=== PATIENT | male | born 1945 | race Caucasian/White ===

== ENCOUNTER 2018-05-23 17:15 | Observation (INO) ==
[2018-05-23 17:58] LABS: Basophils % 0.3 %; Eosinophils # 0.1 K/mcL (0.0-0.6); Eosinophils % 2.4 %; Hematocrit 41.5 % (37.5-50.1); Hemoglobin 14.2 g/dL (12.9-16.9); Immature Granulocytes % 0.5 % (0-4); Lymphocytes % 16.4 %; Mean Corpuscular HGB Conc 34.2 g/dL (31.6-35.5); Mean Corpuscular Hemoglobin 30.5 pg (28.0-33.3); Mean Corpuscular Volume 89.1 fL (83.0-100.0); Mean Platelet Volume 9.9 fL (9.4-12.4); Monocytes # 0.9 K/mcL (0.0-1.3); Monocytes % 16.3 %; Neutrophils # 3.7 K/mcL (1.6-8.9); Platelet Count 260 K/mcL (140-400); Red Blood Count 4.66 M/mcL (4.19-5.50); Red Cell Distribution Width 12.9 % (11.5-14.5); Segmented Neutrophils % 64.1 %
--- NOTE | 2018-05-23 18:02 | Emergency Department Note ---
Disposition Clinical Impression: NSTEMI (non-ST elevated myocardial infarction) Pneumonia Qualifiers: Pneumonia type: due to unspecified organism Laterality: right Lung location: upper lobe of lung Qualified Code(s): J18.1 - Lobar pneumonia, unspecified organism Disposition: Admitted As Inpatient Condition: Good Referrals: Angus Denis DO [Primary Care Provider] - Time of Disposition: 19:48 General Adult HPI - General Chief complaint: ED Shortness of Breath/Dyspnea Stated complaint: cough, congestion, fever Time Seen by Provider: 05/23/18 17:18 Source: patient Limitations: no limitations Nursing Notes Reviewed: Yes Vital Signs Reviewed: Yes - History of Present Illness HPI Narrative: A 72-year-old male with a one-week history of sinus infection. He was seen in urgent care 4 days ago and prescribed amoxicillin. He has not felt any better with the amoxicillin. He has been taking the amoxicillin as prescribed and Aleve for fever and headaches. He had a fever of 102.4 this morning. He also notes that he has had blurry vision and has not had a bowel movement in the past 3 days when he normally has bowel movements daily. Pain Scale: 8 - Related Data Home Medications Medication Instructions Recorded Confirmed Amoxicillin [Amoxicillin] 875 mg PO BID 05/23/18 05/23/18 Zolpidem [Ambien] 10 mg PO HS 05/23/18 05/23/18 Allergies Allergy/AdvReac Type Severity Reaction Status Date / Time No Known Allergies Allergy Verified 05/23/18 19:35 Constitutional: Reports: fever, weakness Eyes: Reports: vision change (blurry vision) ENT ED: Reports: throat pain, dental pain, congestion. Denies: ear pain Cardiovascular: Denies: chest pain Respiratory: Reports: cough, sputum production Gastrointestinal: Reports: constipation Genitourinary: Denies: dysuria Neurological: Reports: headache, weakness Past Medical History - Past Medical History Medical history: Reports: other Surgical history: Reports: non-contributory - Social History Smoking Status: Never smoker Smokeless Tobacco Status: No Alcohol use: Reports: none Drug use: Reports: none Physical Exam - General Limitations: no limitations General appearance: alert, in no apparent distress, other (diaphoretic) - Head Head exam: atraumatic, normocephalic, normal inspection - Eye Eye exam: Present: normal appearance, PERRL, EOMI - ENT ENT exam: normal oropharynx, mucous membranes moist, TM's normal bilaterally, normal external ear exam - Expanded ENT Exam Nose exam: other (boggy turbinates with thick white mucus) - Neck Neck exam: Present: normal inspection. Absent: lymphadenopathy - Chest Chest inspection: Present: normal inspection, symmetric chest wall rise - Respiratory Respiratory exam: Present: normal lung sounds bilaterally - Cardiovascular Cardiovascular exam: Present: regular rate, normal rhythm, normal heart sounds - Abdominal Exam Abdominal exam: Present: soft, tenderness (mild), normal bowel sounds Abdominal tenderness: Present: RLQ, LLQ - Neurological Exam Neurological exam: Present: alert, oriented X3 - Psychiatric Psychiatric exam: Present: normal affect, normal mood - Skin Skin exam: Present: intact, normal color, diaphoresis Course Vital Signs Temperature 98 F 05/23/18 17:17 Pulse Rate 81 05/23/18 17:17 Respiratory Rate 18 05/23/18 17:17 Blood Pressure 192/111 05/23/18 17:17 O2 Sat by Pulse Oximetry 96 05/23/18 17:17 Temperature 98 F 05/23/18 17:33 Pulse Rate 57 05/23/18 19:14 Respiratory Rate 16 05/23/18 19:14 Blood Pressure 116/72 05/23/18 19:14 O2 Sat by Pulse Oximetry 97 05/23/18 19:29 Oxygen Delivery Oxygen Delivery Room Air Medical Decision Making - [facility] Narrative Medical decision making narrative: 72 yo male with 7 day history sinus infection symptoms. Temperature 102.4 this AM currently taking amoxicillin and aleve. Also complaining of constipation x3 days and blurred vision. Head CT negative. KUB showed constipation. Chest CT showed pneumonia. Labs showed critical troponin of 0.15. Will admit for pneumonia and possible concurrent NSTEMI. - Lab Data Result diagrams: 05/23/18 17:49 05/23/18 17:50 Lab Results 05/23/18 05/23/18 05/23/18 Range/Units 17:49 17:49 17:50 WBC 5.8 (4.3-11.1) K/mcL RBC 4.66 (4.19-5.50) M/mcL Hgb 14.2 (12.9-16.9) g/dL Hct 41.5 (37.5-50.1) % MCV 89.1 (83.0-100.0) fL MCH 30.5 (28.0-33.3) pg MCHC 34.2 (31.6-35.5) g/dL RDW 12.9 (11.5-14.5) % Plt Count 260 (140-400) K/mcL MPV 9.9 (9.4-12.4) fL Immature Gran % 0.5 (0-4) % Seg Neutrophils % 64.1 % Lymphocytes % 16.4 % Monocytes % 16.3 % Eosinophils % 2.4 % Basophils % 0.3 % Neutrophils # 3.7 (1.6-8.9) K/mcL Lymphocytes # 1.0 (0.6-4.6) K/mcL Monocytes # 0.9 (0.0-1.3) K/mcL Eosinophils # 0.1 (0.0-0.6) K/mcL Basophils # 0.0 (0.0-0.2) K/mcL Sodium 138 (136-145) mEq/L Potassium 3.9 (3.5-5.1) mEq/L Chloride 103 (98-107) mEq/L Carbon Dioxide 27 (23-29) mEq/L BUN 18 (8-23) mg/dL Creatinine 1.04 (0.70-1.30) mg/dL Est GFR ( Amer) > 60 (> 60) Est GFR (Non-Af Amer) > 60 (> 60) BUN/Creatinine Ratio 17 (6-26) Glucose 102 (70-105) mg/dL Calculated Osmolality 288 (280-300) Lactic Acid 1.5 (0.5-2.2) mmol/L Calcium 9.2 (8.6-10.3) mg/dL Total Bilirubin 0.4 (0.3-1.0) mg/dL AST 49 H (13-39) Units/L ALT 36 (7-52) Units/L Alkaline Phosphatase 69 (34-104) Units/L Troponin I 0.15 H* (< 0.04) ng/mL Serum Total Protein 7.8 (6.4-8.9) g/dL Albumin 3.6 (3.5-5.7) g/dL Globulin 4.2 H (2.4-3.5) g/dL Albumin/Globulin Ratio 0.9 L (1.1-2.2) - EKG Data EKG #1 EKG attestation: Yes I reviewed and interpreted this EKG. EKG shows normal: sinus rhythm (with frequent ventricular premature complexes) Rate: normal Rhythm: PVC's Comstock/QRS: LBBB, wide QRS complex Ectopy: PVC
[2018-05-23 18:21] LABS: Alanine Aminotransferase 36 Units/L (7-52); Albumin 3.6 g/dL (3.5-5.7); Albumin/Globulin Ratio 0.9 (1.1-2.2); Alkaline Phosphatase 69 Units/L (34-104); Aspartate Amino Transferase 49 Units/L (13-39); BUN/Creatinine Ratio 17 (6-26); Bilirubin,Total 0.4 mg/dL (0.3-1.0); Blood Urea Nitrogen 18 mg/dL (8-23); Calcium 9.2 mg/dL (8.6-10.3); Carbon Dioxide 27 mEq/L (23-29); Chloride 103 mEq/L (98-107); Globulin 4.2 g/dL (2.4-3.5); Glucose 102 mg/dL (70-105); Osmolality,Calculated 288 (280-300); Potassium 3.9 mEq/L (3.5-5.1); Sodium 138 mEq/L (136-145); Total Protein 7.8 g/dL (6.4-8.9); eGFR For Non-African Americans > 60 (> 60)
[2018-05-23 18:32] LABS: Troponin I 0.15 ng/mL (< 0.04)
[2018-05-23] MEDS ORDERED: Aspirin 81 MG TAB.CHEW PO ONE (19:19)
[2018-05-23] MEDS ORDERED: *HR* Heparin 5,000 UNIT/ML VIAL IVP PRN ×2 (19:19)
[2018-05-23] MEDS ORDERED: *HR* Heparin 5,000 UNIT/ML VIAL IVP ONE (19:19)
--- NOTE | 2018-05-23 19:20 | Emergency Department Note ---
Disposition Clinical Impression: NSTEMI (non-ST elevated myocardial infarction) Pneumonia Qualifiers: Pneumonia type: due to unspecified organism Laterality: unspecified laterality Lung location: unspecified part of lung Qualified Code(s): J18.9 - Pneumonia, unspecified organism Disposition: Admitted As Inpatient Condition: Good General Adult HPI - General Chief complaint: ED Shortness of Breath/Dyspnea Stated complaint: cough, congestion, fever Time Seen by Provider: 05/23/18 17:18 Source: patient Limitations: no limitations - History of Present Illness Pain Scale: 8 - Related Data Home Medications Medication Instructions Recorded Confirmed Zolpidem [Ambien] 10 mg PO HS 05/23/18 05/23/18 Previous Rx's Medication Instructions Recorded Aspirin Enteric Coated [Aspirin EC] 81 mg PO DAILY #30 tablet. 05/26/18 Atorvastatin [Lipitor] 40 mg PO HS #30 tablet 05/26/18 Cefdinir [Omnicef] 300 mg PO BID #12 capsule 05/26/18 Clopidogrel [Plavix] 75 mg PO DAILY #30 tablet 05/26/18 Lisinopril [Zestril] 5 mg PO DAILY #30 tablet 05/26/18 Allergies Allergy/AdvReac Type Severity Reaction Status Date / Time No Known Allergies Allergy Verified 05/23/18 19:35 Constitutional: Reports: fever, weakness Eyes: Reports: vision change (blurry vision) ENT ED: Reports: throat pain, dental pain, congestion. Denies: ear pain Cardiovascular: Denies: chest pain Respiratory: Reports: cough, sputum production Gastrointestinal: Reports: constipation Genitourinary: Denies: dysuria Neurological: Reports: headache, weakness Past Medical History - Past Medical History Medical history: Reports: other Surgical history: Reports: non-contributory - Social History Smoking Status: Never smoker Smokeless Tobacco Status: No Alcohol use: Reports: none Drug use: Reports: none Physical Exam - General Limitations: no limitations General appearance: alert, in no apparent distress, other (diaphoretic) Course Vital Signs Temperature 98 F 05/23/18 17:17 Pulse Rate 81 05/23/18 17:17 Respiratory Rate 18 05/23/18 17:17 Blood Pressure 192/111 05/23/18 17:17 O2 Sat by Pulse Oximetry 96 05/23/18 17:17 Temperature 98.3 F 05/26/18 15:23 Pulse Rate 63 05/26/18 15:23 Respiratory Rate 18 05/26/18 15:23 Blood Pressure 151/89 05/26/18 15:23 O2 Sat by Pulse Oximetry 96 05/26/18 07:32 Oxygen Delivery Oxygen Delivery Room Air Medical Decision Making - Lab Data Result diagrams: 05/26/18 05:54 05/26/18 05:54 Lab Results 05/23/18 05/23/18 05/23/18 Range/Units 17:49 17:49 17:50 WBC 5.8 (4.3-11.1) K/mcL RBC 4.66 (4.19-5.50) M/mcL Hgb 14.2 (12.9-16.9) g/dL Hct 41.5 (37.5-50.1) % MCV 89.1 (83.0-100.0) fL MCH 30.5 (28.0-33.3) pg MCHC 34.2 (31.6-35.5) g/dL RDW 12.9 (11.5-14.5) % Plt Count 260 (140-400) K/mcL MPV 9.9 (9.4-12.4) fL Immature Gran % 0.5 (0-4) % Seg Neutrophils % 64.1 % Lymphocytes % 16.4 % Monocytes % 16.3 % Eosinophils % 2.4 % Basophils % 0.3 % Neutrophils # 3.7 (1.6-8.9) K/mcL Lymphocytes # 1.0 (0.6-4.6) K/mcL Monocytes # 0.9 (0.0-1.3) K/mcL Eosinophils # 0.1 (0.0-0.6) K/mcL Basophils # 0.0 (0.0-0.2) K/mcL PT (9.4-12.1) Seconds INR APTT (26.0-36.0) Seconds Sodium 138 (136-145) mEq/L Potassium 3.9 (3.5-5.1) mEq/L Chloride 103 (98-107) mEq/L Carbon Dioxide 27 (23-29) mEq/L BUN 18 (8-23) mg/dL Creatinine 1.04 (0.70-1.30) mg/dL Est GFR ( Amer) > 60 (> 60) Est GFR (Non-Af Amer) > 60 (> 60) BUN/Creatinine Ratio 17 (6-26) Glucose 102 (70-105) mg/dL Calculated Osmolality 288 (280-300) Lactic Acid 1.5 (0.5-2.2) mmol/L Calcium 9.2 (8.6-10.3) mg/dL Total Bilirubin 0.4 (0.3-1.0) mg/dL AST 49 H (13-39) Units/L ALT 36 (7-52) Units/L Alkaline Phosphatase 69 (34-104) Units/L Troponin I 0.15 H* (< 0.04) ng/mL Serum Total Protein 7.8 (6.4-8.9) g/dL Albumin 3.6 (3.5-5.7) g/dL Globulin 4.2 H (2.4-3.5) g/dL Albumin/Globulin Ratio 0.9 L (1.1-2.2) 05/23/18 Range/Units 19:41 WBC (4.3-11.1) K/mcL RBC (4.19-5.50) M/mcL Hgb (12.9-16.9) g/dL Hct (37.5-50.1) % MCV (83.0-100.0) fL MCH (28.0-33.3) pg MCHC (31.6-35.5) g/dL RDW (11.5-14.5) % Plt Count (140-400) K/mcL MPV (9.4-12.4) fL Immature Gran % (0-4) % Seg Neutrophils % % Lymphocytes % % Monocytes % % Eosinophils % % Basophils % % Neutrophils # (1.6-8.9) K/mcL Lymphocytes # (0.6-4.6) K/mcL Monocytes # (0.0-1.3) K/mcL Eosinophils # (0.0-0.6) K/mcL Basophils # (0.0-0.2) K/mcL PT 13.9 H (9.4-12.1) Seconds INR 1.2 APTT 33.1 (26.0-36.0) Seconds Sodium (136-145) mEq/L Potassium (3.5-5.1) mEq/L Chloride (98-107) mEq/L Carbon Dioxide (23-29) mEq/L BUN (8-23) mg/dL Creatinine (0.70-1.30) mg/dL Est GFR ( Amer) (> 60) Est GFR (Non-Af Amer) (> 60) BUN/Creatinine Ratio (6-26) Glucose (70-105) mg/dL Calculated Osmolality (280-300) Lactic Acid (0.5-2.2) mmol/L Calcium (8.6-10.3) mg/dL Total Bilirubin (0.3-1.0) mg/dL AST (13-39) Units/L ALT (7-52) Units/L Alkaline Phosphatase (34-104) Units/L Troponin I (< 0.04) ng/mL Serum Total Protein (6.4-8.9) g/dL Albumin (3.5-5.7) g/dL Globulin (2.4-3.5) g/dL Albumin/Globulin Ratio (1.1-2.2) Attestation Statement - Attestation Attestation: I examined this patient and my medical decision-making was reviewed with the Resident Physician. I agree with the documented findings, disposition and treatment plan as described except to the extent set forth below. Findings consistent with pneumonia which is possibly atypical. We will start coverage for community acquired pneumonia with azithromycin for atypical coverage. At cultures will be sent. Additionally given the elevated troponin the setting of normal creatinine and we will start heparin while concurrently troponins are trended. If cardiac biomarkers do not trended upwards this could possibly be contributed to demand ischemia. Aspirin will additionally be administered. I spent greater than 35 minutes of critical care time resuscitating this acutely ill patient suffering from an STEMI as well as pneumonia this was excluding billable procedures.
[2018-05-23] MEDS ORDERED: Heparin 25,000 UNIT/500 ML D5W 25,000 UNIT/500 ML BAG IVC SCH (19:30)
[2018-05-23 19:58] LABS: INR 1.2; Prothrombin Time 13.9 Seconds (9.4-12.1)
[2018-05-23] MEDS ORDERED: Azithromycin 500 MG in D5% in Water 250 ML IVPB ONE (20:00)
[2018-05-23] MEDS ORDERED: cefTRIAXone 2,000 MG in Water for inj. (sterile) 20 ML 20 ML IVP ONE (20:00)
[2018-05-23 20:01] LABS: Activated Partial Thrombo Time 33.1 Seconds (26.0-36.0)
[2018-05-23] MEDS ORDERED: Naloxone 0.4 MG/ML INJ IVP PRN (20:04)
--- NOTE | 2018-05-23 22:08 | Internal Med History&Physical ---
Date of Encounter: 05/24/18 Time of Encounter: 22:00 Internal Medicine - H&P: HPI Chief complaint: Coughing, fevers, malaise for about 10 days History of present illness: Mr. Felix is a 72 year old male with pmh of sinusitis presenting with complaints of feeling unwell for the past 10 days. Patient notes he has been dizzy, coughing and having upper respiratory synptoms which he thought was secondary to his sinusitis and he went to urgent care on monday and was prescribed amoxicillin which he has been taking with no relief. He noted he woke up with a headache this morning and had a fever of 102.4 and that's why he came to the E. In the ER, chest CT was done showing extensive airspace densities in the right lung suggestive of multifocal pneumonia. He is being admitted for further management Past Med Surg Social Fam HX - Past Medical History Medical history: other Additional medical history: Heart murmur r/t rheumatic fever - Past Surgical History Surgical History: non-contributory Additional surgical history: back surgery - Social History Smoking Status: Never smoker Smokeless Tobacco Status: No Alcohol use: none Drug use: none Internal Medicine - H&P: Meds Amoxicillin [Amoxicillin] 875 mg PO BID 05/23/18 [History] Zolpidem [Ambien] 10 mg PO HS 05/23/18 [History] 3 Allergy/AdvReac Type Severity Reaction Status Date / Time No Known Allergies Allergy Verified 05/23/18 19:35 All Systems PM: A 10-system review of systems was performed and is negative for pertinent findings except as documented above in the HPI. - Constitutional Constitutional: fever(s), no chills, no night sweats - EENT Eyes: no change in vision, no discharge, no pain, no photophobia Ears: no ear discharge, no ear pain, no tinnitus Nose, mouth and throat: no dysphagia, no nasal discharge, no neck pain, no sore throat - Cardiovascular Cardiovascular ROS IM: lightheadedness, no chest pain, no diaphoresis, no dyspnea, no palpitations, no syncope - Respiratory Respiratory: cough, dyspnea, no wheezing, no excessive phlegm production - Gastrointestinal Gastrointestinal: no abdominal pain, no diarrhea, no hematemesis, no hematochezia, no melena, no nausea, no vomiting - Musculoskeletal Musculoskeletal ROS IM: no numbness, no tingling - Integumentary Integumentary IM: no rash, no unusual bruising - Neurological Neurological ROS: no confusion, no convulsions, no focal weakness, no numbness, no tingling, no tremor(s) - Hematologic/Lymphatic Hematologic/Lymphatic: no easy bruising - Constitutional Vitals: Temp Pulse Resp BP Pulse Ox 98.5 F 58 16 139/87 97 05/23/18 21:53 05/23/18 21:53 05/23/18 21:53 05/23/18 21:53 05/23/18 21:53 - Head Head exam: Present: atraumatic, normocephalic - Eye Eye exam: Present: PERRL, conjuntiva pink, sclera anicteric Pupils: Present: PERRL - Neck Neck exam general surgery: Present: supple, trachea midline. Absent: lymphadenopathy - Respiratory Respiratory exam: Present: CTAB. Absent: accessory muscle use, rales, rhonchi, wheezes - Cardiovascular Cardiovascular exam: Present: RRR, +S1, +S2. Absent: diastolic murmur, gallop, rubs, systolic murmur - GI/Abdominal GI/Abdominal exam: Present: normal bowel sounds, soft, no peritoneal signs. Absent: distended, tenderness - Extremities Exam Extremities exam: Present: warm, radial pulses palpable and symmetrical. Absent : calf tenderness, cyanotic, pedal edema - Neurological Exam Neurological exam: Present: CN II-XII intact, oriented X3, no focal deficits. Absent: pronater drift, facial droop, speech deficit - Skin Skin exam: Present: dry, intact Internal Med - H&P Results - Labs CBC & Chem 7: 05/23/18 17:49 05/23/18 17:50 - Assessment and plan (1) Sepsis Current Visit: Yes Status: Acute Assessment and plan: Pt had a fever of 102.4 at home and has xray showing multifocal pneumonia. Start on zosy, obtain blood cultures, urinalysis, urine strep and legionella antigen Qualifiers: Sepsis type: sepsis due to unspecified organism Qualified Code(s): A41.9 - Sepsis, unspecified organism (2) Multifocal pneumonia Current Visit: Yes Status: Acute Assessment and plan: On zosyn. Follow cultures (3) NSTEMI (non-ST elevated myocardial infarction) Current Visit: Yes Status: Acute Assessment and plan: Pt had elevated troponins of 0.15 on admission. Admits to SOB, denies chest pain. BP was also noted to be elevated at 192/111 on admission. Likely demand but will trend troponins, and patient was started on a heparin drip. Can likely d/c heparin drip in am if troponins trend down as patient was asymptomatic other than subjective shortness of breath. EKG showed no acute ischemic changes. Obtain 2D echo (4) DVT prophylaxis Current Visit: Yes Status: Acute Assessment and plan: On heparin drip - Time Spent With Patient Total time spent is greater than 50% in coordination of care (as documented) at patient's floor/unit and/or counseling patient:
[2018-05-23] MEDS: 0.9 % Sodium Chloride 1,000 ML IVC SCH (22:30)
[2018-05-24] MEDS: Piperacillin/Tazobactam 3.375 GM in 0.9 % Sodium Chloride Mini Bag 100 ML IVPB SCH ×2 (00:50→09:08)
[2018-05-24 00:51] LABS: Basophils % 0.4 %; Eosinophils # 0.2 K/mcL (0.0-0.6); Eosinophils % 3.6 %; Hematocrit 38.4 % (37.5-50.1); Hemoglobin 13.4 g/dL (12.9-16.9); Immature Granulocytes % 0.4 % (0-4); Lymphocytes # 1.1 K/mcL (0.6-4.6); Lymphocytes % 18.8 %; Mean Corpuscular HGB Conc 34.9 g/dL (31.6-35.5); Mean Corpuscular Volume 88.9 fL (83.0-100.0); Mean Platelet Volume 10.1 fL (9.4-12.4); Monocytes # 0.7 K/mcL (0.0-1.3); Monocytes % 11.8 %; Neutrophils # 3.7 K/mcL (1.6-8.9); Platelet Count 235 K/mcL (140-400); Red Blood Count 4.32 M/mcL (4.19-5.50); Red Cell Distribution Width 12.9 % (11.5-14.5)
[2018-05-24 01:07] LABS: BUN/Creatinine Ratio 26 (6-26); Blood Urea Nitrogen 18 mg/dL (8-23); Calcium 8.8 mg/dL (8.6-10.3); Carbon Dioxide 23 mEq/L (23-29); Chloride 105 mEq/L (98-107); Glucose 106 mg/dL (70-105); Osmolality,Calculated 286 (280-300); Phosphorous 3.4 mg/dL (2.7-4.5); Potassium 3.6 mEq/L (3.5-5.1); Sodium 137 mEq/L (136-145); eGFR For Non-African Americans > 60 (> 60)
--- NOTE | 2018-05-24 09:50 | Internal Med Progress Note ---
<Mayco Galo W - Last Filed: 05/24/18 16:02> Date of Encounter: 05/24/18 Time of Encounter: 09:45 - Assessment and plan (1) Pneumonia Current Visit: Yes Status: Acute Assessment and plan: -Community acquired pneumonia possible multi focal, possible atypical. -CT scan showed probably RRL pneumonia with possible multifocal pneumonia -WBC normal at 5.6, currently afebrile. temp 102.4 morning before admission. lactic acid 1.5 and 2.1 -Blood cultures pending -Urinary legionella and strep antigens pending Plan -Day 2 of zosyn; switch to unasyn -Tylenol PRN for GONG -Continue supportive care -Follow labs Qualifiers: Pneumonia type: due to unspecified organism Laterality: unspecified laterality Lung location: unspecified part of lung Qualified Code(s): J18.9 - Pneumonia, unspecified organism (2) Sinusitis Current Visit: Yes Status: Acute Assessment and plan: -History of sinusitis -Symptoms of GONG and pressure plan -Unasyn started -symptomatic care Qualifiers: Sinusitis location: frontal Chronicity: chronic Qualified Code(s): J32.1 - Chronic frontal sinusitis (3) Bradycardia Current Visit: Yes Status: Acute Assessment and plan: asymptomatic bradycardia at time. EKG found sinus bradycardia with moderate interventricular conduction delays Echo impression below LVEF 50%. Mild left ventricular diastolic dysfunction. Normal right ventricular structure and function. Mild mitral regurgitation. Mild tricuspid regurgitation. Mild-moderate pulmonic regurgitation. No pulmonary hypertension. (4) Elevated troponin Current Visit: Yes Status: Acute Assessment and plan: Trending 0.15 to 0.13 to 0.08 to 0.1 Believed to be demand Ischemia Troponin ordered Consult to cardiology (5) DVT prophylaxis Current Visit: Yes Status: Acute Assessment and plan: discontinued heparin therapuetic lovenox - Subjective Interval history: Mr. eFlix is a 72-year-old male past medical history sinusitis patient has sinus symptoms for 10 days in the past 3 days he stated it was so bad he needed to stay in bed. He went to urgent care was given amoxicillin on 05/18/18. Patient was still feeling dizzy, had a headache, was coughing. He woke up with fever 102.4 on 05/23/18. Patient presented to the emergency department. A CT chest was performed suggestive of a right lower lobe pneumonia and possible multifocal pneumonia. CT of the head was normal. KUB showed constipation. Patient was started on Rocephin and Zithromax. The patient was later switched to Zosyn due to sepsis concern. Patient has blood cultures pending. Urine strep and Legionella antigens pending. In the ED patient also noted to have elevated troponin level troponin level was 0.15 21 and showed a level of 0.13 today 0.08 hen 0.1. EKG showed no acute ischemic changes. Echo showed LVEF 50%. Mild left ventricular diastolic dysfunction. Today the patient states he is feeling better. Denies any significant shortness of breath. Denies chest pain. However he states is really clammy has significant night sweats and does feel feverish. He states he has no cough. And does not produce much phlegm throughout his course. Patient still has a headache over the top of his forehead. States he does not feel weak. Temperature is 79.9. White count is 5.6. - Constitutional Vitals: Temp Pulse Resp BP Pulse Ox 97.9 F 63 18 140/97 97 05/24/18 06:47 05/24/18 06:47 05/24/18 06:47 05/24/18 06:47 05/24/18 06:47 General appearance: Present: A&O X 3, pleasant, no acute distress, answers questions appropriately - Head Head exam: Present: atraumatic, normocephalic Additional comments: Non tender to palpation over sinuses - Eye Eye exam: Present: EOMI, normal appearance, PERRL - Respiratory Respiratory exam: Present: decreased breath sounds (Lower lung norris), CTAB, rhonchi, wheezes (Slight expiratory wheeze). Absent: rales, respiratory distress, stridor - Cardiovascular Cardiovascular exam: Present: RRR, +S1, +S2. Absent: rubs, +S3, +S4 - GI/Abdominal GI/Abdominal exam: Present: normal bowel sounds, soft. Absent: hepatomegaly, splenomegaly - Neurological Exam Neurological exam: Present: alert, CN II-XII intact, oriented X3. Absent: facial droop, speech deficit - Psychiatric Psychiatric exam: Present: normal affect, normal mood Internal Medicine: Result - Labs CBC & Chem 7: 05/24/18 00:22 05/24/18 00:22 Labs: Short CBC 05/24/18 Range/Units 00:22 WBC 5.6 (4.3-11.1) K/mcL Hgb 13.4 (12.9-16.9) g/dL Hct 38.4 (37.5-50.1) % Plt Count 235 (140-400) K/mcL Neutrophils # 3.7 (1.6-8.9) K/mcL BMP 05/24/18 00:22 Sodium 137 Potassium 3.6 Chloride 105 Carbon Dioxide 23 BUN 18 Creatinine 0.69 L Glucose 106 H Calcium 8.8 Cardiac Enzymes 05/24/18 05/24/18 Range/Units 00:22 06:57 Troponin I 0.13 H* 0.08 H* (< 0.04) ng/mL - ABG Interpretation ABG results: PT/INR, D-dimer PT 13.9 Seconds (9.4-12.1) H 05/23/18 19:41 Consult Discharge Plan - Plan Referrals: Angus Denis DO [Primary Care Provider] - <Alexis Perea - Last Filed: 05/24/18 17:30> Date of Encounter: 05/24/18 - Constitutional Vitals: Temp Pulse Resp BP Pulse Ox 97.4 F L 56 16 148/81 97 05/24/18 15:17 05/24/18 15:17 05/24/18 15:17 05/24/18 15:17 05/24/18 15:17 Internal Medicine: Result - Labs CBC & Chem 7: 05/24/18 00:22 05/24/18 00:22 Labs: Short CBC 05/24/18 Range/Units 00:22 WBC 5.6 (4.3-11.1) K/mcL Hgb 13.4 (12.9-16.9) g/dL Hct 38.4 (37.5-50.1) % Plt Count 235 (140-400) K/mcL Neutrophils # 3.7 (1.6-8.9) K/mcL BMP 05/24/18 00:22 Sodium 137 Potassium 3.6 Chloride 105 Carbon Dioxide 23 BUN 18 Creatinine 0.69 L Glucose 106 H Calcium 8.8 Cardiac Enzymes 05/24/18 05/24/18 05/24/18 Range/Units 00:22 06:57 11:06 Troponin I 0.13 H* 0.08 H* 0.10 H* (< 0.04) ng/mL - ABG Interpretation ABG results: PT/INR, D-dimer PT 13.9 Seconds (9.4-12.1) H 05/23/18 19:41 - Impressions Impressions Echocardiogram 05/24/18 22:17 Impressions: LVEF 50%. Mild left ventricular diastolic dysfunction. Normal right ventricular structure and function. Mild mitral regurgitation. Mild tricuspid regurgitation. Mild-moderate pulmonic regurgitation. No pulmonary hypertension. Left Ventricular Wall Motion: Rest Echo Findings All wall segments showed normal motion. Findings: Study Quality * Technically adequate exam. ECG Findings * Normal sinus rhythm. Left Ventricle * LVEF 50%. * Normal LV chamber size and wall thickness. * Mild left ventricular diastolic dysfunction. Right Ventricle * Normal right ventricular structure and function. Left Atrium * Moderately dilated left atrium. Right Atrium * Normal right atrial size. Mitral Valve * Normal mitral valve structure. * No mitral stenosis. * Mild mitral regurgitation. Aortic Valve * No aortic regurgitation. * Trileaflet aortic valve. * No aortic stenosis. * Mildly calcified aortic valve leaflets. Tricuspid Valve * Normal tricuspid valve structure. * Mild tricuspid regurgitation. * Estimated RA pressure is 3 mmHg. * Estimated RVSP is 33 mmHg. * No pulmonary hypertension. Pulmonic Valve * Pulmonic valve is not well visualized. * No pulmonic stenosis. * Mild-moderate pulmonic regurgitation. Pulmonary Artery * Pulmonary artery not well visualized. Aorta * Normally sized aortic root. Pericardium * There is no pericardial effusion present. Interatrial Septum * No evidence of PFO by color Doppler. IVC * Normal IVC dimensions and inspiratory collapse. - Attending Attestation I examined this patient and my medical decision-making was reviewed with the Resident Physician. I agree with the documented findings, disposition and treatment plan as described except to the extent set forth below.
[2018-05-24] MEDS: Acetaminophen 325 MG TABLET PO PRN ×2 (09:54→20:28)
[2018-05-24] MEDS: *HR* Enoxaparin 100 MG/ML SYRINGE SQ SCH (17:28)
[2018-05-24] MEDS: Ampicillin/Sulbactam 3,000 MG in 0.9 % Sodium Chloride Mini Bag 100 ML IVPB SCH (17:29)
[2018-05-24] MEDS: 0.9 % Sodium Chloride 1,000 ML IVC SCH (19:27)
[2018-05-25] MEDS: Ampicillin/Sulbactam 3,000 MG in 0.9 % Sodium Chloride Mini Bag 100 ML IVPB SCH ×4 (01:02→17:30)
[2018-05-25 01:48] LABS: Basophils % 0.8 %; Eosinophils # 0.2 K/mcL (0.0-0.6); Eosinophils % 4.2 %; Hematocrit 37.2 % (37.5-50.1); Hemoglobin 12.4 g/dL (12.9-16.9); Immature Granulocytes % 0.8 % (0-4); Lymphocytes % 19.3 %; Mean Corpuscular HGB Conc 33.3 g/dL (31.6-35.5); Mean Corpuscular Hemoglobin 29.7 pg (28.0-33.3); Mean Platelet Volume 9.6 fL (9.4-12.4); Monocytes # 0.6 K/mcL (0.0-1.3); Monocytes % 11.3 %; Neutrophils # 3.3 K/mcL (1.6-8.9); Platelet Count 285 K/mcL (140-400); Red Blood Count 4.18 M/mcL (4.19-5.50); Red Cell Distribution Width 13.2 % (11.5-14.5); Segmented Neutrophils % 63.6 %
[2018-05-25 02:11] LABS: BUN/Creatinine Ratio 19 (6-26); Blood Urea Nitrogen 16 mg/dL (8-23); Calcium 8.9 mg/dL (8.6-10.3); Carbon Dioxide 24 mEq/L (23-29); Chloride 108 mEq/L (98-107); Glucose 120 mg/dL (70-105); Osmolality,Calculated 292 (280-300); Potassium 3.8 mEq/L (3.5-5.1); Sodium 140 mEq/L (136-145); eGFR For Non-African Americans > 60 (> 60)
--- NOTE | 2018-05-25 02:15 | Electrocardiograph Report ---
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
--- NOTE | 2018-05-25 02:17 | Electrocardiograph Report ---
[place] [id number] Test Date: 2018-05-23 Pat Name: Con Felix Department: 104 Room: 2NE28 Gender: M Mission Support Specialist: : 1945 Requested By: Iban Hunter Order Number: [id number] Reading MD: Franchesca Garcia Measurements Intervals [place] Rate: 67 P: 44 GA: 173 QRS: 30 QRSD: 113 T: 24 QT: 403 QTc: 418 Interpretive Statements PROBABLY SINUS RHYTHM ARTIFACT LIMITS INTERPRETATION INTRAVENTRICULAR CONDUCTION DELAY [110+ ms QRS DURATION] VENTRICULAR ECTOPY Electronically Signed On 05-24-2018 16:13:16 EDT by Franchesca Garcia
[2018-05-25] MEDS: *HR* Enoxaparin 100 MG/ML SYRINGE SQ SCH ×2 (07:05→17:29)
[2018-05-25] MEDS: Aspirin 325 MG TABLET PO SCH (09:31)
--- NOTE | 2018-05-25 10:01 | Cardiology Consult Note ---
<Noman Leo - Last Filed: 05/25/18 10:04> Date of Encounter: 05/25/18 Time of Encounter: 09:30 Assessment and Plan (1) NSTEMI (non-ST elevated myocardial infarction) Current Visit: Yes Status: Acute Troponin elevation up to 0.15 and trending down. EKG showed SR with frequent PAC. He is seen to have frequent idioventrucular rhythm. TTE shows low normal EF at 50%. No WMA. Mild MR, Mild TR, mild -moderate DE. No prior history of CAD. Seen to have HTN, HLD. [facility] recommended for further evaluation. R/B/A of [facility] discussed with patient and he agrees to proceed. Discussion w patient/family: The assessment and plan as outlined above was discussed with the patient and/or family members who expressed understanding and agreement. All questions were answered. Thank you for involving us in the care of your patient. Please call with any questions. History of Present Illness Consult date: 05/25/18 Requesting physician: Aretha De Los Santos Consult reason: Elevated troponin Chief complaint: sinus congestion, fever History of present illness: Mr. Felix is a 72 year old male with past medical history of HLD and rheumatic fever who presented with the c/o sinus congestion, eyes watering, and fever. He states that he has a sinus infection once every 6 months. He presented to the ED for his symptoms. He denies chest pain, SOB, or palpitations. In the ED his work-up revealed abnormal EKG showing frequent PVC and frequent idioventricular rhythm. Troponin was found to be elevated at 0.15 and is trending down. B/p found to be elevated up tp 190/111 Cardiology consulted for NSTEMI. He denies prior cardiac history. Past Med Surg Social Fam HX - Past Medical History Medical history: hyperlipidemia, other Additional medical history: Heart murmur r/t rheumatic fever Psychiatric history: no psych history - Past Surgical History Surgical History: non-contributory Additional surgical history: back surgery - Social History Smoking Status: Never smoker Smokeless Tobacco Status: No Alcohol use: none Drug use: none Medications and Allergies Amoxicillin [Amoxicillin] 875 mg PO BID 05/23/18 [History] Zolpidem [Ambien] 10 mg PO HS 05/23/18 [History] 3 Allergy/AdvReac Type Severity Reaction Status Date / Time No Known Allergies Allergy Verified 05/23/18 19:35 All Systems Review: The remainder of the systems were reviewed and are negative Physical Examination Vital Signs, Last 4 Hours Pulse Resp BP Pulse Ox 05/25/18 07:45 58 16 196/95 96 General: Conversant, No Apparent Distress HEENT: Atraumatic, Normocephaly, Mucus Membranes Moist Neck: No JVD, Normal carotid pulses Cardiac: Reg Rate and Rhythm, Normal S1 and S2, No Murmur Lungs: Normal Breath Sounds, No Wheeze, Rales, Rhonchi Neuro: Alert and responsive, No focal deficits noted Abdomen: Soft, Non-Tender Skin: No rashes noted on visualized skin Musculoskeletal: No Chest Wall Tenderness Extremities: No Clubbing, No Cyanosis, No Edema, Normal Pulses Results 05/25/18 01:05 05/25/18 01:05 Lab Results 05/24/18 05/24/18 05/25/18 11:06 17:22 01:05 WBC 5.2 Hgb 12.4 L Hct 37.2 L Plt Count 285 Sodium Potassium Chloride Carbon Dioxide BUN Creatinine Glucose Calcium Troponin I 0.10 H* 0.10 H* 05/25/18 01:05 WBC Hgb Hct Plt Count Sodium 140 Potassium 3.8 Chloride 108 H Carbon Dioxide 24 BUN 16 Creatinine 0.84 Glucose 120 H Calcium 8.9 Troponin I - Imaging and Cardiology Echo: report reviewed - EKG Interpretation EKG results cardiology: personally reviewed Consult Discharge Plan - Plan Referrals: Angus Denis DO [Primary Care Provider] - <Juvencio Shaw - Last Filed: 05/25/18 12:35> Date of Encounter: 05/25/18 - Attending Attestation I have personally performed a face to face evaluation on this patient. I have reviewed and agree with the care plan. History and Exam by me shows: Symptoms more suggestive of URI but low normal EF, frequent ventricular ectopy and mildly abnormal troponin. Have recommended left heart cath, he agrees. Assessment and Plan Discussion w patient/family: The assessment and plan as outlined above was discussed with the patient and/or family members who expressed understanding and agreement. All questions were answered. Thank you for involving us in the care of your patient. Please call with any questions. History of Present Illness History of present illness: Mr. Felix is a 72 year old male All Systems Review: The remainder of the systems were reviewed and are negative Physical Examination Vital Signs, Last 4 Hours Temp Pulse Resp BP Pulse Ox 05/25/18 11:35 97.8 F 60 16 159/83 96 Results 05/25/18 01:05 05/25/18 01:05 Lab Results 05/24/18 05/25/18 05/25/18 17:22 01:05 01:05 WBC 5.2 Hgb 12.4 L Hct 37.2 L Plt Count 285 Sodium 140 Potassium 3.8 Chloride 108 H Carbon Dioxide 24 BUN 16 Creatinine 0.84 Glucose 120 H Calcium 8.9 Troponin I 0.10 H*
--- NOTE | 2018-05-25 10:16 | Internal Med Progress Note ---
<Mayco Galo W - Last Filed: 05/25/18 11:17> Date of Encounter: 05/25/18 Time of Encounter: 10:13 - Assessment and plan (1) Pneumonia Current Visit: Yes Status: Acute Assessment and plan: -Community acquired pneumonia probable multfocal -CT scan showed probable RLL pnumonia with the possiblity of Multi focal pneumonia -WBC normal at 5.2, currently afebrile. -Blood cultures pending -Urinary legionella and strep antigens pending Plan -Day 2 Unasyn; continue Qualifiers: Pneumonia type: due to unspecified organism Laterality: unspecified laterality Lung location: unspecified part of lung Qualified Code(s): J18.9 - Pneumonia, unspecified organism (2) Sinusitis Current Visit: Yes Status: Acute Assessment and plan: -History of sinusitis -Symptoms of GONG and pressure -improved plan -Unasyn started -symptomatic care Qualifiers: Sinusitis location: frontal Chronicity: chronic Qualified Code(s): J32.1 - Chronic frontal sinusitis (3) HTN (hypertension) Current Visit: Yes Status: Acute Assessment and plan: BP 195/95 today Patient states he is supposed to take some BP meds but never does Hydralazine 10 mg given based on response may schedule Will monitor closely Qualifiers: Hypertension type: unspecified Qualified Code(s): I10 - Essential (primary ) hypertension (4) Bradycardia Current Visit: Yes Status: Acute Assessment and plan: asymptomatic bradycardia at time. EKG found sinus bradycardia with moderate interventricular conduction delays Echo impression below showed LVEF 50% Cardio consulted appreciate recs (5) Elevated troponin Current Visit: Yes Status: Acute Assessment and plan: Troponins remain critical 1.5 on admission on 05/23/18 05/24/18 0.13 to 0.08 to 0.08 to 0.1 Cardio consulted appreciate recs (6) DVT prophylaxis Current Visit: Yes Status: Acute Assessment and plan: therapuetic lovenox scheduled - Subjective Interval history: Hospital day #3. Today he states he is near 100%. He denies chest pain, SOB, GONG , fever, chills, night sweats, cough, n/v, weakness. Troponins remain elevated last troponin yesterday evening was .1. Cardio is consulted. - Constitutional Vitals: Temp Pulse Resp BP Pulse Ox 97.9 F 58 16 196/95 96 05/25/18 05:00 05/25/18 07:45 05/25/18 07:45 05/25/18 07:45 05/25/18 07:45 General appearance: Present: A&O X 3, pleasant, no acute distress, answers questions appropriately - Head Head exam: Present: atraumatic, normocephalic - Eye Eye exam: Present: EOMI, normal appearance, PERRL - ENT ENT exam: Present: mucous membranes moist - Respiratory Respiratory exam: Present: CTAB. Absent: respiratory distress, rhonchi, stridor , wheezes - Cardiovascular Cardiovascular exam: Present: RRR, +S1, +S2 - Neurological Exam Neurological exam: Present: alert, CN II-XII intact, oriented X3. Absent: altered, no focal deficits, speech deficit - Psychiatric Psychiatric exam: Present: normal affect, normal mood Internal Medicine: Result - Labs CBC & Chem 7: 05/25/18 01:05 05/25/18 01:05 Labs: Short CBC 05/25/18 Range/Units 01:05 WBC 5.2 (4.3-11.1) K/mcL Hgb 12.4 L (12.9-16.9) g/dL Hct 37.2 L (37.5-50.1) % Plt Count 285 (140-400) K/mcL Neutrophils # 3.3 (1.6-8.9) K/mcL BMP 05/25/18 01:05 Sodium 140 Potassium 3.8 Chloride 108 H Carbon Dioxide 24 BUN 16 Creatinine 0.84 Glucose 120 H Calcium 8.9 Cardiac Enzymes 05/24/18 05/24/18 Range/Units 11:06 17:22 Troponin I 0.10 H* 0.10 H* (< 0.04) ng/mL - ABG Interpretation ABG results: PT/INR, D-dimer PT 13.9 Seconds (9.4-12.1) H 05/23/18 19:41 - Impressions Impressions Echocardiogram 05/24/18 22:17 Impressions: LVEF 50%. Mild left ventricular diastolic dysfunction. Normal right ventricular structure and function. Mild mitral regurgitation. Mild tricuspid regurgitation. Mild-moderate pulmonic regurgitation. No pulmonary hypertension. Left Ventricular Wall Motion: Rest Echo Findings All wall segments showed normal motion. Findings: Study Quality * Technically adequate exam. ECG Findings * Normal sinus rhythm. Left Ventricle * LVEF 50%. * Normal LV chamber size and wall thickness. * Mild left ventricular diastolic dysfunction. Right Ventricle * Normal right ventricular structure and function. Left Atrium * Moderately dilated left atrium. Right Atrium * Normal right atrial size. Mitral Valve * Normal mitral valve structure. * No mitral stenosis. * Mild mitral regurgitation. Aortic Valve * No aortic regurgitation. * Trileaflet aortic valve. * No aortic stenosis. * Mildly calcified aortic valve leaflets. Tricuspid Valve * Normal tricuspid valve structure. * Mild tricuspid regurgitation. * Estimated RA pressure is 3 mmHg. * Estimated RVSP is 33 mmHg. * No pulmonary hypertension. Pulmonic Valve * Pulmonic valve is not well visualized. * No pulmonic stenosis. * Mild-moderate pulmonic regurgitation. Pulmonary Artery * Pulmonary artery not well visualized. Aorta * Normally sized aortic root. Pericardium * There is no pericardial effusion present. Interatrial Septum * No evidence of PFO by color Doppler. IVC * Normal IVC dimensions and inspiratory collapse. Consult Discharge Plan - Plan Referrals: Angus Denis DO [Primary Care Provider] - <Alexis Perea - Last Filed: 05/25/18 19:22> Date of Encounter: 05/25/18 - Constitutional Vitals: Temp Pulse Resp BP Pulse Ox 98.2 F 55 16 151/79 97 05/25/18 18:44 05/25/18 18:44 05/25/18 18:44 05/25/18 18:44 05/25/18 18:44 Internal Medicine: Result - Labs CBC & Chem 7: 05/25/18 01:05 05/25/18 01:05 Labs: Short CBC 05/25/18 Range/Units 01:05 WBC 5.2 (4.3-11.1) K/mcL Hgb 12.4 L (12.9-16.9) g/dL Hct 37.2 L (37.5-50.1) % Plt Count 285 (140-400) K/mcL Neutrophils # 3.3 (1.6-8.9) K/mcL BMP 05/25/18 01:05 Sodium 140 Potassium 3.8 Chloride 108 H Carbon Dioxide 24 BUN 16 Creatinine 0.84 Glucose 120 H Calcium 8.9 - ABG Interpretation ABG results: PT/INR, D-dimer PT 13.9 Seconds (9.4-12.1) H 05/23/18 19:41 - Attending Attestation I examined this patient and my medical decision-making was reviewed with the Resident Physician. I agree with the documented findings, disposition and treatment plan as described except to the extent set forth below.
[2018-05-25] MEDS ORDERED: hydrALAZINE 10 MG TABLET PO ONE (11:12)
[2018-05-25] MEDS ORDERED: *HR* Heparin 10,000 UNIT/10 ML VIAL ONE (15:47)
[2018-05-25] MEDS ORDERED: Heparin 1,000 UNITS/500 mL 500 ML ONE (15:48)
[2018-05-25] MEDS ORDERED: Nitroglycerin 1,000 MCG/10 ML VIAL IV ONE (15:48)
[2018-05-25] MEDS ORDERED: 0.9 % Sodium Chloride 2,000 ML ONE (15:48)
[2018-05-25] MEDS ORDERED: ISOVUE-370 200 ML INFUS..BTL IV ONE (15:48)
--- NOTE | 2018-05-25 16:20 | Pre-Sedation Evaluation ---
Pre-sedation evaluation - Pre-sedation checklist Date of procedure: 05/25/18 Procedure: LEFT HEART CATHETERIZATION Recent Vitals: Last Vital Signs Temp 97.8 F 05/25/18 11:35 Pulse 60 05/25/18 11:35 Resp 16 05/25/18 11:35 BP 159/83 05/25/18 11:35 Pulse Ox 96 05/25/18 11:35 H&P (including ROS) documented in medical record: Yes Previous reaction to sedatives/anesthetics: No Dietary Status: Clear fluids after Midnight Dentition: No loose teeth or bridges ASA Classification *see protocol: CLASS II-Mild systemic disease Plan of Care: Pt appropriate candidate for procedure/moderate/conscious sedation , Risks/benefits of procedure/sedation discussed w/ patient/family Cardiac Registry (Cardio Only) - Functional Capacity Functional Capacity: >=4 METS with symptoms - Clincal Frailty Scale Clinical Frailty Scale: Managing Well
[2018-05-25] MEDS ORDERED: *HR* Midazolam HCl 2 MG/2 ML VIAL ONE (16:22)
[2018-05-25] MEDS ORDERED: *HR* FentaNYL (PF) 100 MCG/2 ML VIAL ONE (16:22)
[2018-05-25] MEDS ORDERED: Verapamil 5 MG/2 ML VIAL ONE (16:22)
[2018-05-25] MEDS ORDERED: Tirofiban 5 MG/100 mL 5 MG/100 ML VIAL IV ONE (16:46)
[2018-05-25] MEDS ORDERED: Tirofiban 12.5 MG/250ML 12.5 MG/250 ML BAG IVC SCH (17:00)
--- NOTE | 2018-05-25 17:19 | Invasive Diagnostic Lab Proc ---
Name: Con Felix Date of Study: 05/25/2018 Date: 1945 Ht: 72.0in Medical Record#: [id number] Age: 72 Wt: 191.14lb Gender: Male BSA: 2.09 Order #: [id number] BMI: 25.89 Physicians Procedure Physician: Shlomo Wiggins MD, [facility] Referring MD: Referring MD: Staff Name Position Time In Roverto Rodriguez RN Plate Maker Zinc 04:18 PM Racheal Montejo RT (R) Monitor 04:18 PM Elana Armas RT (R) Scrub 04:18 PM Indications Indication Non-Stemi Procedures Performed Procedure L HRT ARTERY/VENTRICLE ANGIO PRQ CARD LITZY STENT W/ANGIO 1 VSL Pre-Procedure Checklist Informed consent is complete signed and on chart. H&P is on chart. ID band is on and ID verified with patient. Patient NPO for procedure The procedure was described for the patient and questions were answered. ECG is on chart. Plan of Care Patient will tolerate the procedure without complications. Adequate level of comfort will be maintained. Hemodynamics will remain stable Patient will recover from procedure without complications. Respiratory function will be maintained. Cardiac rhythm will remain stable. Patient temperature will be maintained. Patient and/or family have verbalized understanding of the procedure. Patient Education Chief Complaint/Reason for Test: Cardiac Cath Developmental Category: Geriatric (65+ years) Developmentally Appropriate for Age: Yes Learning Barriers: None Education Needs: Procedure Education Method: Verbal Information Taught: Cardiac Cath Educational Evaluation: Able to repeat information Intravenous Access Time IV Size Location DC'd Fluid/Drip Rate Units RN 0.9NaCl ml/hr Allergies No Known Allergies Ciprofloxacin NKDA Unable to Assess Vital Signs Time BP (mmHg) HR (bpm) O2 Sat. RR (bpm) LOC 04:20 PM / % 5 = Fully awake and oriented or at pre-proc level 04:20 PM / % 4 = Oriented but drowsy 04:27 PM 163 / 78 71 98 % 19 04:31 PM 129 / 79 59 95 % 16 04:36 PM 128 / 66 52 97 % 26 04:41 PM 122 / 67 61 94 % 17 04:46 PM 121 / 63 57 96 % 23 04:51 PM 120 / 64 54 96 % 20 Procedural Medications Time Medication Dose Units Method Given By 04:20 PM Oxygen 2 L/min nasal cannula Roverto Rodriguez RN 04:25 PM Versed 2 mg Intravenous Roverto Rodriguez RN 04:25 PM Fentanyl 50 mcg Intravenous Roverto Rodriguez RN 04:34 PM Lidocaine 2% 0.5 ml Subcutaneous Shlomo Wiggins MD, [facility] 04:49 PM Aggrastat Bolus: 42 ml Intravenous Roverto Rodriguez RN 04:50 PM Aggrastat 5mg/100ml 15 ml/hr Intravenous Roverto Rodriguez RN 04:36 PM Heparin 4000 units Nitroglycerin 200 mcg Verapamil 2.5 mg Intraarterial Shlomo Wiggins MD, [facility] 04:59 PM Plavix 600 mg Orally Roverto Rodriguez RN Shahid Score Preprocedure Postprocedure Activity 2- Moves 4 extremities sustained head lift Activity 2- Moves 4 extremities sustained head lift Circulation 2- SBP +/= 20 points of pre-anesthetic level Circulation 2- SBP +/= 20 points of pre-anesthetic level Consciousness 2- Awake and alert oriented x 3 Consciousness 2- Awake and alert oriented x 3 O2 Saturation 2- Able to maintain O2 satruation of 92% on room air O2 Saturation 2- Able to maintain O2 satruation of 92% on room air Respiratory 2- Able to deep breathe and cough well Respiratory 2- Able to deep breathe and cough well Total Score 10 Total Score 10 Contrast Agent: Isovue Diagnostic Contrast: 66 ml Total Contrast: 66 ml Fluoro Dose: 36 mGy Activated Clotting Time Time Seconds to Clot 04:50 PM 254 Procedure Log Time Note Enter By 04:18 PM Pt arrived to mill laborer 1 at 16:18 [email or web address] 04:18 PM Roverto Rodriguez RN Position: Plate Maker Zinc Time in: 16:18 [email or web address] 04:18 PM Racheal Montejo RT (R) Position: Monitor Time in: 16:18 [email or web address] 04:19 PM CathStat 04:19 PM Case Start 04:19 PM Elana Armas RT (R) Position: Scrub Time in: 16:18 [email or web address] 04:19 PM Patient charges- Angio tray pack, Navilyst 3mm J, Pulse Oximetry and ACIST tubing and transducer [email or web address] 04:19 PM Hair removed from procedure site in procedure lab using clippers. Right wrist/ right groin prepped with Chloraprep by Racheal Montejo RT (R), then patient was draped. Skin intact. [email or web address] 04:19 PM Physician arrived 16:19 [email or web address] PM Meet and greet completed [email or web address] :19 PM Sign in performed according to hospital policy. [email or web address] :19 PM Procedure start 16: [email or web address] :20 PM Time: 16:20 Patient comfortable and pain free: Yes [email or web address] PM Time: 16:20LOC: 5 = Fully awake and oriented or at pre-proc level [email or web address] :20 PM Time: 16:20 Oxygen on at 2 L/min per nasal cannula by Roverto Rodriguez RN [email or web address] 04:25 PM Vitals capture started with the following parameters, Patient=Adult, Interval=5 min, Initial Uzbleeai=184 mmHg, Deflation Rate=3 mmHg, Cuff placed on Right Arm 04:25 PM Time: 16:25 Versed 2 mg Intravenous Given by Roverto Rodriguez RN 04:25 PM Time: 16:25 Fentanyl 50 mcg Intravenous Given by [facility] Rodriguez RN [facility] 04:27 PM HR=71 bpm, KVIZ=294/78 mmhg, SpO2=98.0 %, Resp=19 B/min, Comment=Sinus Rico with PVC's 04:29 PM Clinical Presentation: Non-STEMI dsp 04:31 PM HR=59 bpm, KCPE=374/79 mmhg, SpO2=95.0 %, Resp=16 B/min, Comment=Sinus Rico with PVC's 04:31 PM Pressure channel 1 zeroed. 04:33 PM Time out performed according to hospital policy 35 PM Time: 16:20 Patient comfortable and pain free: Yes :35 PM Time: 16:20LOC: 4 = Oriented but drowsy [email or web address] :35 PM Time: 16:34 0.5 ml Lidocaine 2% to right radial Subcutaneous Given by Shlomo Wiggins MD, FACC [email or web address] :36 PM Time: 16:36 Patient given 4,000 units Heparin, 200 mcg Nitroglycerin, and 2.5 mg Verapamil Intraarterial by Shlomo Wiggins MD, FACC. This is given to reduce risk of vessel spasm and thrombosis. [email or web address] PM HR=52 bpm, QUCQ=897/66 mmhg, SpO2=97.0 %, Resp=26 B/min, Comment=Sinus Rico with PVC's 04:36 PM Access obtained by percutaneous puncture. 6Fr 10cm Terumo Glidesheath sheath placed in right Radial artery. [id number] dspellman 04:36 PM 5Fr TIG catheter inserted over the wire DN dspellman 04:36 PM 0.035 260cm Navilyst 3mmJ wire [id number] dspellman 04:38 PM Recorded Pressure: Ao, HR=66, Condition=Condition 1 (Aorta) Ao 78/18/54 04:38 PM RCA angiography performed in multiple views. dspellman 04:38 PM Lesion found in Proximal RCA. Pre Stenosis: 80 Pre MARY GRACE Flow: 3: Complete and Brisk Flow/Perfusion dspellman 04:39 PM Catheter removed dspellman 04:39 PM 5Fr FL3.5 catheter inserted over the wire [id number] dspellman 04:40 PM Pressure channel 1 zeroed. 04:41 PM Recorded Pressure: Ao, HR=58, Condition=Condition 1 (Aorta) Ao 102/69/85 04:41 PM LCA angiography performed in multiple views. dspellman 04:41 PM HR=61 bpm, OYGG=612/67 mmhg, SpO2=94.0 %, Resp=17 B/min, Comment=Sinus 04:42 PM Lesion found in Distal Circumflex. Pre Stenosis: 60 Pre MARY GRACE Flow: 3: Complete and Brisk Flow/Perfusion dspellman 04:42 PM Lesion found in Mid LAD. Pre Stenosis: 50 Pre MARY GRACE Flow: 3: Complete and Brisk Flow/Perfusion dspellman 04:42 PM Catheter removed dspellman 04:42 PM Coronary Dominance: Co-dominant dspellman 04:43 PM 5Fr Pigtail catheter inserted over the wire [facility] dspellman 04:43 PM Catheter selectively placed in left ventricle dspellman 04:43 PM Bolus angiogram of left Ventricle complete: 10 ml/sec for a total of 25 mls dspellman 04:43 PM Right Coronary, Right Posterior Descending Arteries with Right Posterolateral and Acute Marginal branches with 80 % stenosis. If graft is supplying this area, 0 % stenosis dspellman 04:44 PM Mid/Distal Left Anterior Descending Coronary Artery and diagonal branches with 50% stenosis. If graft is supplying this area, 0 % stenosis dspellman 04:44 PM Circumflex, Obtuse Marginal, Left Posterior Descending, and Left Posterolateral Coronary Arteries with 60 % stenosis. If graft is supplying this area, 0 % stenosis dspellman 04:45 PM Recorded Pressure: LV, HR=71, Condition=Condition 1 (Left Ventricle) LV 138/4/14 04:45 PM Recorded Pressure: LV, Ao, HR=57, Condition=Condition 1 (Left Ventricle) LV 133/8/14, (Aorta) Ao 127/55/90 04:46 PM HR=57 bpm, EWZH=245/63 mmhg, SpO2=96.0 %, Resp=23 B/min, Comment=Sinus Rico 04:46 PM Catheter removed dspellman 04:46 PM Lesion found in Distal RCA. Pre Stenosis: 45 Pre MARY GRACE Flow: 3: Complete and Brisk Flow/Perfusion dspellman 04:47 PM ACT drawn dspellman 04:47 PM PCI Status Urgent dspellman 04:47 PM PCI lesion in Proximal RCA. dspellman 04:47 PM 6Fr JR 4 Runway guide catheter was used to cannulate the PCI vessel successfully. reused? No dspellman 04:47 PM .014 [place] 190cm guide wire across target lesion- successful. reused? No dspellman 04:48 PM Inflation device was opened. dspellman 04:49 PM 3.5mm x 12mm Synergy drug-eluting stent across target lesion- successful Lot #[id number] dspellman 04:50 PM Time: 16:49 Aggrastat Bolus: 42 ml Intravenous Given by Roverto Rodriguez RN Quintero pump dspellman 04:50 PM Time: 16:50 Aggrastat 5mg/100ml 15 ml/hr Intravenous Given by Roverto Rodriguez RN Quintero pump dspellman 04:50 PM Stent deployed @ 16 marco antonio for 24 seconds dspellman 04:50 PM At 16:50 the ACT was 254 seconds. dspellman 04:51 PM HR=54 bpm, EBCS=840/64 mmhg, SpO2=96.0 %, Resp=20 B/min, Comment=Sinus Rico 04:51 PM Guide wire removed intact. dspellman 04:51 PM Stent delivery system removed intact. dspellman 04:51 PM Guide catheter removed intact. dspellman 04:52 PM Procedure completed at 16:52 05/25/2018 dspellman 04:52 PM Did you address MARY GRACE flow and Dominance? yes dspellman 04:53 PM Sign out completed: Radiation Dose 431.93 mGy, 36.49 Gy/cm2 Fluoro Time: 4.8 Isovue 370 - 200ml contrast 66 ml given by Shlomo Wiggins MD, [facility]. Complications: NoneCardiac Rehab Consult needed: YesConfirmed administered medications: Yes dspell 04:53 PM Isovue 370 - 200ml,1 Bottle(s) used. dspell 04:53 PM Arterial sheath pulled, Vasc Band closure device used and was Successful S/N. dspell 04:53 PM 13 ml air in Vasc Band. dspell 04:53 PM Estimated Blood Loss: minimal dspell 04:54 PM Post ECG Sinus Bradycardia dspell 04:54 PM Post Blood Pressure 120/64 dspell 04:54 PM 16:54 Post Pulses Rt Radial 2+ dspell 04:54 PM Information taught Cardiac Cath, PCI, and Vasc Band dspell 04:54 PM Education needs Procedure, Plan of Care, and Responsibilities of Patient in Care dspell 04:54 PM Learning barriers :None dspell 04:54 PM Education Methods Verbal dspellman 04:54 PM Education evaluation Able to repeat information dspellman 04:55 PM Site status No bleeding/hematoma - Rt Wrist as reported by Elana Armas RT (R) at 16:54 dspellman 04:55 PM Delay to floor No dspellman 04:55 PM Family placed in consult room. dspellman 04:55 PM Complications: None dspell 04:59 PM Time: 16:59 Plavix 600 mg Orally Given by Roverto Rodriguez RN dspell 05:03 PM Report given to Gio TOBIAS Pt taken to E Room #28. 17:03 dspellman 05:03 PM Patient [facility] of room: 17:[facility] Complications Complication None None Hemodynamics Pressures Site Systolic/A Wave Diastolic/V Wave Mean AO 78 18 54 AO 102 69 85 LV 138 4 14 LV 133 8 14 AO 127 55 90 Post Procedure Information Blood Pressure: 120/64 mmHg Rhythm: Sinus Bradycardia Post procedural instructions were given Closure Device Time Device Success/Fail 05/25/2018 4:55:00 PM Mechanical Compression Successful Site Checks Time Location Status Staff Sheath In? Note 04:54 PM Rt Wrist No bleeding/hematoma Elana Armas RT (R) No Pulses Time Site Pre-Procedure Post-Procedure Note 4:54:00 PM Rt Radial 2+ 2+ Updated by Racheal Montejo RT (R) on 05/25/2018 5:10:37 PM RT Melquiades electronically signed on 05/25/2018 5:11:20 PM with status of Final
[2018-05-25] MEDS: Acetaminophen 325 MG TABLET PO PRN (20:20)
[2018-05-26] MEDS: Ampicillin/Sulbactam 3,000 MG in 0.9 % Sodium Chloride Mini Bag 100 ML IVPB SCH ×3 (00:47→11:36)
[2018-05-26 06:39] LABS: Basophils % 0.5 %; Eosinophils # 0.3 K/mcL (0.0-0.6); Eosinophils % 4.6 %; Hematocrit 38.1 % (37.5-50.1); Hemoglobin 12.8 g/dL (12.9-16.9); Immature Granulocytes % 1.2 % (0-4); Lymphocytes # 1.1 K/mcL (0.6-4.6); Lymphocytes % 18.6 %; Mean Corpuscular HGB Conc 33.6 g/dL (31.6-35.5); Mean Corpuscular Hemoglobin 29.8 pg (28.0-33.3); Mean Corpuscular Volume 88.6 fL (83.0-100.0); Mean Platelet Volume 9.6 fL (9.4-12.4); Monocytes # 0.6 K/mcL (0.0-1.3); Monocytes % 10.3 %; Neutrophils # 3.8 K/mcL (1.6-8.9); Platelet Count 334 K/mcL (140-400); Red Cell Distribution Width 13.2 % (11.5-14.5); Segmented Neutrophils % 64.8 %
[2018-05-26] MEDS: *HR* Enoxaparin 100 MG/ML SYRINGE SQ SCH (06:50)
[2018-05-26 07:06] LABS: BUN/Creatinine Ratio 17 (6-26); Blood Urea Nitrogen 14 mg/dL (8-23); Calcium 8.9 mg/dL (8.6-10.3); Carbon Dioxide 25 mEq/L (23-29); Chloride 106 mEq/L (98-107); Glucose 96 mg/dL (70-105); Osmolality,Calculated 288 (280-300); Sodium 139 mEq/L (136-145); eGFR For Non-African Americans > 60 (> 60)
[2018-05-26] MEDS: Aspirin 325 MG TABLET PO SCH (08:05)
--- NOTE | 2018-05-26 12:46 | Internal Med Progress Note ---
Hospitalist Progress Note - Encounter Date of Encounter: 05/26/18 Time of Encounter: 12:44 - Subjective Interval History: No complaints, no acute events. Denies CP, SOB, n/v, fevers/chills. - Exam Vitals: Temp Pulse Resp BP Pulse Ox 98.3 F 57 18 145/77 96 05/26/18 10:42 05/26/18 10:42 05/26/18 10:42 05/26/18 10:42 05/26/18 07:32 Exam: Gen: NAD CVS: RRR Lungs: Good air echange. + fine rales in right lung field Ext: no edema. - Assessment and Plan (1) NSTEMI (non-ST elevated myocardial infarction) Current Visit: Yes Status: Acute Assessment and Plan: Pt had elevated troponins of 0.15 on admission. Patient had C yesterday with stent placed. Currently no complaints. Cardiology following, recommendations appreciated. (2) Pneumonia Current Visit: Yes Status: Acute Assessment and Plan: Continue Unasyn. Failed amoxicillin therapy as outpatient. Will de escalate ABX. Stable from pneumonia standpoint. (3) Sinusitis Current Visit: Yes Status: Inactive (4) DVT prophylaxis Current Visit: Yes Status: Acute Assessment and Plan: On heparin drip (5) Bradycardia Current Visit: Yes Status: Acute Assessment and Plan: Asymptomatic (6) Elevated troponin Current Visit: Yes Status: Acute (7) HTN (hypertension) Current Visit: Yes Status: Acute Assessment and Plan: Start Lisinopril - Time Spent with Patient Total time spent is greater than 50% in coordination of care (as documented) at patient's floor/unit and/or counseling patient: Internal Medicine: Result - Labs CBC & Chem 7: 05/26/18 05:54 05/26/18 05:54 Labs: Short CBC 05/26/18 Range/Units 05:54 WBC 5.9 (4.3-11.1) K/mcL Hgb 12.8 L (12.9-16.9) g/dL Hct 38.1 (37.5-50.1) % Plt Count 334 (140-400) K/mcL Neutrophils # 3.8 (1.6-8.9) K/mcL BMP 05/26/18 05:54 Sodium 139 Potassium 4.0 Chloride 106 Carbon Dioxide 25 BUN 14 Creatinine 0.83 Glucose 96 Calcium 8.9 - ABG Interpretation ABG results: PT/INR, D-dimer PT 13.9 Seconds (9.4-12.1) H 05/23/18 19:41 Consult Discharge Plan - Plan Referrals: Angus Denis DO [Primary Care Provider] - (2) Pneumonia Qualifiers: Pneumonia type: due to unspecified organism Laterality: unspecified laterality Lung location: unspecified part of lung Qualified Code(s): J18.9 - Pneumonia, unspecified organism (3) Sinusitis Qualifiers: Sinusitis location: frontal Chronicity: chronic Qualified Code(s): J32.1 - Chronic frontal sinusitis (7) HTN (hypertension) Qualifiers: Hypertension type: essential hypertension Qualified Code(s): I10 - Essential (primary) hypertension
--- NOTE | 2018-05-26 15:24 | Cardiology Progress Note ---
Date of Encounter: 05/26/18 Time of Encounter: 12:30 Assessment and Plan (1) NSTEMI (non-ST elevated myocardial infarction) Current Visit: Yes Status: Acute Troponin elevation up to 0.15 and trending down. EKG showed SR with frequent PAC. He is seen to have frequent idioventrucular rhythm. TTE shows low normal EF at 50%. No WMA. Mild MR, Mild TR, mild -moderate WI. No prior history of CAD. Seen to have HTN, HLD. [facility] completed and he received LITZY to his RCA. There was no complication from the procedure. Denies recurrent chest pain. No complications from right femoral access site. Importance of DAPT with asa and plavix uninterrupted for minimum of one year discussed and she voiced understanding. Start statin therapy. No bb due to HR in the 50's. Telemetry reviewed Nocturnal pause noted. No recurrent IVCD seen. Avg HR 58 BPM. He denies symptoms. Denies dizziness or lightheadedness. Activity restrictions reviewed as stated above. Cardiac rehab ordered. Cardiology will sign off. Out-pt f/u will be coordinated by [facility]. (2) CAD (coronary artery disease) Current Visit: Yes Status: Acute Qualifiers: Coronary Disease-Associated Artery/Lesion type: [place] artery [place] vs. transplanted heart: [place] heart Associated angina: without angina Qualified Code(s): I25.10 - Atherosclerotic heart disease of [place] coronary artery without angina pectoris (3) Bradycardia Current Visit: Yes Status: Acute Seen to have bradycardia and IVCD on admission. LHC showed severe RCA disease. IVCD resolved. Avg HR 58 bpm. Low 50's on my exam. He is asymptomatic. Avoid AV nicole jaelyn. Discussion w patient/family: The assessment and plan as outlined above was discussed with the patient and/or family members who expressed understanding and agreement. All questions were answered. Thank you for involving us in the care of your patient. Please call with any questions. Subjective Principal diagnosis: NSTEMI Interval history: No problems overnight. Denies chest pain. Objective General: Conversant, No Apparent Distress HEENT: Atraumatic, Normocephaly, Mucus Membranes Moist Neck: No JVD, Normal carotid pulses Cardiac: Reg Rate and Rhythm, Normal S1 and S2, No Murmur Lungs: Normal Breath Sounds, No Wheeze, Rales, Rhonchi Neuro: Alert and responsive, No focal deficits noted Abdomen: Soft, Non-Tender Skin: No rashes noted on visualized skin Musculoskeletal: No Chest Wall Tenderness Extremities: No Clubbing, No Cyanosis, No Edema, Normal Pulses Results 05/26/18 05:54 05/26/18 05:54 Lab Results 05/26/18 05/26/18 05:54 05:54 WBC 5.9 Hgb 12.8 L Hct 38.1 Plt Count 334 Sodium 139 Potassium 4.0 Chloride 106 Carbon Dioxide 25 BUN 14 Creatinine 0.83 Glucose 96 Calcium 8.9 - Imaging and Cardiology Echo: report reviewed Cardiac cath: report reviewed - EKG Interpretation EKG results cardiology: personally reviewed Consult Discharge Plan - Plan Referrals: Angus Denis DO [Primary Care Provider] -
[2018-05-26 15:27] VITALS: BP 151/89
--- NOTE | 2018-05-26 16:48 | Discharge Summary ---
- NOTES TO OUTPATIENT PROVIDER Notes to Outpatient Provider: Cardiology appointment being coordinated. Follow- up CXR in 3-4 weeks. Orders not resulted at time of discharge: Pending orders 05/23/18 21:59 Legionella Antigen [RM] Routine Streptococcal pneumoniae urin antigen [S. Pneumoniae Antigen] [RM] Routine 05/25/18 16:57 ECG 12 lead ECG [ECG] Stat 05/26/18 06:00 ECG 12 lead ECG [ECG] AM 0600 05/27/18 04:00 Basic Metabolic Panel AM 0400 CBC [Complete Blood Count] [HEME] AM 0400 05/28/18 04:00 Basic Metabolic Panel AM 0400 CBC [Complete Blood Count] [HEME] AM 0400 Date of Encounter: 05/26/18 Time of Encounter: 16:36 - Discharge Diagnosis (1) NSTEMI (non-ST elevated myocardial infarction) Priority: Primary Status: Acute (2) Pneumonia Priority: Secondary Status: Acute Qualifiers: Pneumonia type: due to unspecified organism Laterality: unspecified laterality Lung location: unspecified part of lung Qualified Code(s): J18.9 - Pneumonia, unspecified organism (3) Sinusitis Priority: Secondary Status: Inactive Qualifiers: Sinusitis location: frontal Chronicity: chronic Qualified Code(s): J32.1 - Chronic frontal sinusitis (4) Bradycardia Priority: Secondary Status: Acute (5) HTN (hypertension) Priority: Secondary Status: Acute Qualifiers: Hypertension type: essential hypertension Qualified Code(s): I10 - Essential (primary) hypertension Hospital course: Mr. Felix is a 72 year old male presented to [facility] with complaints of feeling unwell for 10 days, with dizziness, cough and URI-like symptoms. He was prescribed amoxicillin with no relief. He woke up on day of admission with fever of 102.4 F and so came in. A CT scan in ED showed multifocal pneumonia. His BP was also elevated at 192/111. He was seen to have elevated troponin of 0.15 and EKG showed frequent idioventricular rhythm. An echocardiogram was done showing normal EF 50% and moderate NC. He was started on heparin drip, Zosyn and transitioned to Unasyn. Troponin trended down. Cardiology was consulted, and patient had C on 05/25/18, had stent placed in RCA, tolerated procedure well. He is discharged on dual antiplatelet therapy, statin, and Omnicef for pneumonia. He has Cardiology follow-up being coordinated. He was discharged in stable condition. - Time Spent with Patient Total time spent providing and/or coordinating discharge services: - Discharge Medications Prescriptions: Atorvastatin [Lipitor] 40 mg PO HS #30 tablet Clopidogrel [Plavix] 75 mg PO DAILY #30 tablet Lisinopril [Zestril] 5 mg PO DAILY #30 tablet Home Medications: Zolpidem [Ambien] 10 mg PO HS 05/23/18 [History] Aspirin Enteric Coated [Aspirin EC] 81 mg PO DAILY #30 tablet. 05/26/18 [Rx] Atorvastatin [Lipitor] 40 mg PO HS #30 tablet 05/26/18 [Rx] Cefdinir [Omnicef] 300 mg PO BID #12 capsule 05/26/18 [Rx] Clopidogrel [Plavix] 75 mg PO DAILY #30 tablet 05/26/18 [Rx] Lisinopril [Zestril] 5 mg PO DAILY #30 tablet 05/26/18 [Rx] Allergies/Adverse Reactions: 3 Allergy/AdvReac Type Severity Reaction Status Date / Time No Known Allergies Allergy Verified 05/23/18 19:35 Date of admission: 05/23/18 20:13 Primary care physician: Angus Denis DO Consults: 05/24/18 15:25 Consult to Cardiology [CONS] Routine Comment: Consulting Provider: Cardiology Mireya Reason for Consult: elevated troponin and abnormal ecg Time Notified: 15:25 Call Completed: No 05/25/18 16:57 Consult to Cardiac Rehabilitation-Phase1 [CONS] Routine Comment: Reason for Consult: post op PCI Call Completed: Yes Discharging clinician: Alexis Perea - Constitutional Vitals: Temp Pulse Resp BP Pulse Ox 98.3 F 63 18 151/89 96 05/26/18 15:23 05/26/18 15:23 05/26/18 15:23 05/26/18 15:23 05/26/18 07:32 General appearance: Present: A&O X 3, pleasant, no acute distress, answers questions appropriately - Head Head exam: Present: atraumatic, normocephalic - Eye Eye exam: Present: PERRL, conjuntiva pink, sclera anicteric Pupils: Present: PERRL - Neck Neck exam general surgery: Present: supple, trachea midline. Absent: lymphadenopathy - Respiratory Respiratory exam: Present: CTAB. Absent: accessory muscle use, rales, rhonchi, wheezes - Cardiovascular Cardiovascular exam: Present: RRR, +S1, +S2. Absent: diastolic murmur, gallop, rubs, systolic murmur - GI/Abdominal GI/Abdominal exam: Present: normal bowel sounds, soft, no peritoneal signs. Absent: distended, tenderness - Extremities Exam Extremities exam: Present: warm, radial pulses palpable and symmetrical. Absent : calf tenderness, cyanotic, pedal edema - Neurological Exam Neurological exam: Present: CN II-XII intact, oriented X3, no focal deficits. Absent: pronater drift, facial droop, speech deficit - Skin Skin exam: Present: dry, intact - Patient Status Disposition: Home, Self-Care Condition: Good Functional capacity at discharge: independent ambulation Overall status at discharge: patient is progressing back to baseline - Discharge Instructions Follow Up With: Angus Denis DO [Primary Care Provider] - (appt requested ) Forms: ED Satisfaction Letter - Diet and Activity Activity: as per the cardiac rehab Diet: low fat, low cholesterol, low salt diet
--- NOTE | 2018-05-28 09:00 | Electrocardiograph Report ---
[place] [id number] Test Date: 2018-05-26 Pat Name: Con Felix Department: 111 Room: 2NE28 Gender: M Physics Department Chair: : 1945 Requested By: Shlomo Wiggins Order Number: [id number] Reading MD: Shlomo Wiggins Measurements Intervals [place] Rate: 53 P: -1 MS: 189 QRS: 22 QRSD: 114 T: 4 QT: 434 QTc: 417 Interpretive Statements SINUS BRADYCARDIA Electronically Signed On 05-28-2018 8:59:24 EDT by Shlomo Wiggins
== END 2018-05-26 17:12 | disposition home or self-care (01) ==
LOC: 2NENU 17:15 → EMEROO 17:15 → OBSVTOIN 20:13 → INTOOBSV 20:13 → 2NENU 20:56
PROVIDERS: ADMIT Student in an Organized Health Care Education/Training Program; ATTEND Student in an Organized Health Care Education/Training Program